=== PATIENT | male | born 2000 | race Caucasian/White ===

== ENCOUNTER 2021-11-17 23:12 | Emergency (ER) | payer SELFPAY ==
[~2021-11-17] VITALS: Ht 177.8 cm; Wt 133.0 kg
[2021-11-17 23:25] VITALS: BP 150/80
== END 2021-11-18 | disposition home or self-care (01) ==
LOC: ER 23:12
DX: T40.711A Poisoning by cannabis, accidental (unintentional), initial encounter (principal); F12.129 Cannabis abuse with intoxication, unspecified; R00.0 Tachycardia, unspecified; R03.0 Elevated blood-pressure reading, without diagnosis of hypertension; Y92.89 Other specified places as the place of occurrence of the external cause
CPT/HCPCS: 93005; 99283